=== PATIENT | female | born 1995 | race Caucasian/White ===

== ENCOUNTER 2016-11-22 00:43 | Emergency (ER) | payer MEDICAID, OTHER ==
[2016-11-22 01:09] VITALS: BP 142/97
[2016-11-22] MEDS ORDERED: LIDOCAINE 2% INJ (20 MG/ML) 20 ML MDV INJ ONE (02:39)
[2016-11-22] MEDS ORDERED: DIPH/PERTUSS(ACELL)/TETANUS VAC/PF 0.5 ML SYR (>=10YO) IM ONE (02:39)
--- NOTE | 2016-11-22 02:43 | ER Document Report ---
ED Wound - General Chief Complaint: Laceration Stated Complaint: FINGER LACERATION,RIGHT HAND Mode of Arrival: Ambulatory Information source: Patient TRAVEL OUTSIDE OF THE [place] IN LAST 30 DAYS: No - HPI Patient complains to provider of: Laceration Notes: Patient arrives with complaint of laceration to the right ring finger. She states around 10:00 at work she externally cut her finger on the metal rim of ice cream container. She states that she is unsure when her last tetanus was. She denies any numbness tingling or weakness. She denies any excessive bleeding. She denies any other injuries. She is on no blood thinners. She complains of minimal pain, worse with movement, better with rest. She denies any fever, redness, drainage. No other injuries, no other complaints. - Related Data Allergies/Adverse Reactions: No Known Allergies Allergy (Unverified 11/22/16 01:05) Past Medical History - Social History Smoking Status: Unknown if Ever Smoked Family History: Reviewed & Not Pertinent Patient has suicidal ideation: No Patient has homicidal ideation: No Renal/ Medical History: Denies: Hx Peritoneal Dialysis Review of Systems - Review of Systems -: Yes All other systems reviewed and negative Physical Exam - Vital signs Vitals: Temp Pulse Resp BP Pulse Ox 98.3 F 102 H 16 142/97 H 99 11/22/16 01:05 11/22/16 01:05 11/22/16 01:05 11/22/16 01:05 11/22/16 01:05 - Notes Notes: GENERAL: alert, cooperative, nontoxic, no distress. HEAD: normocephalic, atraumatic EYES: conjunctiva pink without discharge, no external redness or swelling. EARS: no external swelling, no external redness NOSE: atraumatic, no external swelling MOUTH/THROAT: mucous membranes moist and pink, posterior pharynx without erythema, swelling, exudate. No trismus or drooling. NECK: soft, supple, full range of motion, no meningismus. CHEST: no distress, lungs clear and equal throughout. No wheezing, rales, rhonchi. CARDIAC: regular rate and rhythm, no murmur, normal capillary refill, normal pulses. No peripheral edema noted. BACK: full range of motion, no CVA tenderness. EXTREMITIES: full range of motion of all extremities. No redness, no swelling. 1 cm laceration to the right ring finger, PIP. Full flexion of the finger, with no flexor tendon laceration. No foreign body. No active bleeding. Normal cap refill and sensation distally. NEURO: alert and oriented 3, no focal deficits, full range of motion of all extremities. PYSCH: appropriate mood, affect. Patient is cooperative. SKIN: pink, warm, dry, no rash. Course - Re-evaluation Re-evalutation: 11/22/16 02:59 Patient is nontoxic. Stable vitals. Patient has a minor laceration to the right ring finger. No flexor tendon laceration. No foreign body. Tetanus will be updated. Laceration was repaired and the patient will be discharged home. The patient is noted to have elevated blood pressure during today's emergency department visit. The patient was informed of this finding. The patient was instructed that this may be related to pre-hypertension and requires further evaluation with a primary care provider. The patient has no hypertensive symptoms at this time. The patient's emergency department workup and current diagnosis were explained to the patient and or family. Follow-up instructions were provided. Medications if prescribed were discussed. Instructions for when to return to the emergency department including specific worrisome symptoms were discussed with the patient and/or family. - Vital Signs Vital signs: Temp Pulse Resp BP Pulse Ox 98.3 F 102 H 16 142/97 H 99 11/22/16 01:05 11/22/16 01:05 11/22/16 01:05 11/22/16 01:05 11/22/16 01:05 Procedures - Laceration/Wound Repair right ring finger Wound length (cm): 1 Wound's Depth, Shape: Superficial, Linear Laceration pre-procedure: Sterile PPE donned, Sterile drapes applied, Shur- Clens applied Anesthetic type: 2% Lidocaine Volume Anesthetic (mLs): 1 Wound explored: Clean, No foreign body removed Wound Repaired With: Sutures Suture Size/Type: 5:0, Nylon Number of Sutures: 4 Layer Closure?: No Post-procedure wound care: Sterile dressing applied Post-procedure NV exam normal: Yes Complications: No Discharge - Discharge Clinical Impression: Laceration of right ring finger Condition: Stable Disposition: HOME, SELF-CARE Instructions: Laceration Care ([facility]) Additional Instructions: Clean wound twice a day with soap and water. Tylenol and Motrin as needed for pain. Coronal and wire at work, otherwise it is okay to leave it open to air. Follow-up in 10-12 days for suture removal, sooner for increased pain, fever, redness, drainage, any further concerns. Your blood pressure was elevated during today's visit. Have this rechecked with your doctor. Forms: Elevated Blood Pressure
== END 2016-11-22 03:08 | disposition home or self-care (01) ==
LOC: ER 00:43
PROC: 0HQFXZZ Repair Right Hand Skin, External Approach (ICD-10-PCS; principal; 2016-11-22)
DX: S61.214A Laceration without foreign body of right ring finger without damage to nail, initial encounter (principal); X58.XXXA Exposure to other specified factors, initial encounter
CPT/HCPCS: 99282; 90471; 90715; 12001; J3490